=== PATIENT | female | born 1980 | race Caucasian/White ===

== ENCOUNTER 2017-08-15 10:26 | Emergency (ER) | payer BC ==
[2017-08-15] MEDS ORDERED: Rho(D) Immune Globulin 300 MCG/2 ML Syringe IM ONE (10:58)
--- NOTE | 2017-08-15 11:02 | EDM.PDOC ---
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 Patient said she had some vaginal bleeding at the beginning of and saw Dr. Bob and had blood work done on July 25 and July 27 which yielded serum quantitative hCG is of 398 and 1029. She has not had any vaginal bleeding since that time and she has not had sexual intercourse for more than 3 days. Patient says that she has had nausea throughout the mostly at night but not much vomiting she's not had diarrhea urinary complaints fever chills cough runny nose or sore throat. She's been hydrating. She says that she had some pinkish spotting yesterday only when she wiped and some cramping and has used 1 or 2 light pad since that time with some darkish blood currently. She has not passed any tissue. The patient has not seen Jhoana yet but has a scheduled appointment upcoming. She has not had an in office pelvic ultrasound or a formal ultrasound during her initial vaginal bleeding the beginning of July but did have a speculum exam from Dr. Bob at that time. Patient has no surgical history or gynecological history or ectopic risks Review of systems: As per history of present illness and below otherwise all systems reviewed and negative. Past medical history: As per history of present illness and as reviewed below otherwise noncontributory. Surgical history: As per history of present illness and as reviewed below otherwise noncontributory. Social history: No reported history of drug or alcohol abuse. Family history: As per history of present illness and as reviewed below otherwise noncontributory. Physical exam: Gen.: Well-developed well-nourished overweight female who is nontoxic and speaking clearly and easily in the ED. Vital signs of the note by me HEENT: Atraumatic, normocephalic, negative for conjunctival pallor or scleral icterus, mucous membranes moist, throat clear, neck supple, nontender, trachea midline. Lungs: Clear to auscultation, breath sounds equal bilaterally, chest nontender. Heart: S1S2, regular rate and rhythm no overt murmurs Abdomen: Soft, nondistended, nontender. Negative for masses or hepatosplenomegaly. Negative for costovertebral tenderness. Pelvis: Stable nontender. Genitourinary: External genitalia are within normal limits and there is no blood in the vaginal vault on digital exam. Cervix is closed, uterus is small and bulky 6-8 weeks size and nontender. Rectal: Deferred. Extremities: Atraumatic, negative for cords or calf pain. Neurovascular unremarkable. Neuro: Awake, alert, oriented. Cranial nerves II through XII unremarkable. Cerebellum unremarkable. Motor and sensory unremarkable throughout. Exam nonfocal. Diagnostics: CBC UA urine culture if indicated serum quantitative hCG pelvic ultrasound Therapeutics: Patient tells me that she is B- and will need RhoGAM so I will order this for her 1158--case was discussed with Jhoana Genao and she agrees with care plan of Keflex for the bacteriuria and RhoGam. The patient will follow up with her in the clinic and I've advised her on reasons return as well as strict pelvic rest. The quantitative hCG is pending at the time of this disposition but in light of the ultrasound documenting a live IUP I will not hold her for that. Impression: Threatened Definitive disposition and diagnosis as appropriate pending reevaluation and review of above. 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 - Infectious Disease History Infectious Disease History: Reports: Chicken Pox Social & Family History - Family History Family Medical History: Noncontributory Cardiac: Reports: Angina Respiratory: Reports: Sleep Apnea OBGYN: Reports: Musculoskeletal: Reports: Arthritis Neurological: Reports: None Psychiatric: Reports: Anxiety, Depression Oncologic: Reports: Skin - Tobacco Use Smoking Status *Q: Former Smoker Second Hand Smoke Exposure: Yes - Caffeine Use Caffeine Use: Reports: Tea - Recreational Drug Use Recreational Drug Use: No ED ROS GENERAL - Review of Systems Review Of Systems: ROS reveals no pertinent complaints other than HPI. ED EXAM, GENERAL - Physical Exam Exam: See Below (See dictation) Course - Vital Signs Last Recorded V/S: Last Vital Signs Temp 36.6 C 08/15/17 10:32 Pulse 94 08/15/17 10:32 Resp 15 08/15/17 10:32 BP 129/82 08/15/17 10:32 Pulse Ox 97 08/15/17 10:32 - Orders/Labs/Meds Orders: Active Orders 24 hr Category Date Time Status CULTURE URINE [RM] Stat Lab 08/15/17 11:05 Received HCG QUANTITATIVE,SERUM [CHEM] Stat Lab 08/15/17 11:02 Received RHOGAM, [RHIG WORKUP, ] [BBK] Stat Lab 08/15/17 11:02 Received TYPE AND SCREEN [BBK] Stat Lab 08/15/17 11:02 Received Labs: Laboratory Tests 08/15/17 08/15/17 Range/Units 11:02 11:05 WBC 8.24 (4.0-11.0) K/uL RBC 4.78 (4.30-5.90) M/uL Hgb 14.0 (12.0-16.0) g/dL Hct 40.8 (36.0-46.0) % MCV 85.4 (80.0-98.0) fL MCH 29.3 (27.0-32.0) pg MCHC 34.3 (31.0-37.0) g/dL RDW Std Deviation 40.2 (28.0-62.0) fl RDW Coeff of Ingris 13 (11.0-15.0) % Plt Count 185 (150-400) K/uL MPV 10.10 (7.40-12.00) fL Neut % (Auto) 77.0 (48.0-80.0) % Lymph % (Auto) 16.9 (16.0-40.0) % [place] % (Auto) 5.1 (0.0-15.0) % Eos % (Auto) 0.8 (0.0-7.0) % Baso % (Auto) 0.2 (0.0-1.5) % Neut # (Auto) 6.3 H (1.4-5.7) K/uL Lymph # (Auto) 1.4 (0.6-2.4) K/uL Irion # (Auto) 0.4 (0.0-0.8) K/uL Eos # (Auto) 0.1 (0.0-0.7) K/uL Baso # (Auto) 0.0 (0.0-0.1) K/uL Nucleated RBC % 0.0 /100WBC Nucleated RBCs # 0 K/uL Urine Color YELLOW Urine Appearance CLEAR Urine pH 6.0 (5.0-8.0) Ur Specific [place] >= 1.030 (1.001-1.035) Urine Protein NEGATIVE (NEGATIVE) mg/dL Urine Glucose (UA) NEGATIVE (NEGATIVE) mg/dL Urine Ketones NEGATIVE (NEGATIVE) mg/dL Urine Occult Blood LARGE H (NEGATIVE) Urine Nitrite NEGATIVE (NEGATIVE) Urine Bilirubin NEGATIVE (NEGATIVE) Urine Urobilinogen 0.2 (<2.0) EU/dL Ur Leukocyte Esterase MODERATE (NEGATIVE) Urine RBC 5-7 (0-2/HPF) Urine WBC 1-3 (0-5/HPF) Ur Epithelial Cells MODERATE (NONE-FEW) Urine Bacteria 2+ H (NEGATIVE) Meds: Medications Discontinued Medications Generic Name Dose Route Start Last Admin Trade Name Denzelq PRN Reason Stop Dose Admin Rho Immune Globulin 300 mcg 08/15/17 10:58 Rhophylac IM 08/15/17 10:59 ONETIME ONE Departure - Departure Time of Disposition: 12:00 Disposition: Home, Self-Care 01 Condition: Good Clinical Impression: Threatened - Discharge Information Referrals: PCP,None [Primary Care Provider] - Forms: ED Department Discharge Additional Instructions: The following information is given to patients seen in the emergency department who are being discharged to home. This information is to outline your options for follow-up care. We provide all patients seen in our emergency department with a follow-up referral. The need for follow-up, as well as the timing and circumstances, are variable depending upon the specifics of your emergency department visit. If you don't have a primary care physician on staff, we will provide you with a referral. We always advise you to contact your personal physician following an emergency department visit to inform them of the circumstance of the visit and for follow-up with them and/or the need for any referrals to a consulting specialist. The emergency department will also refer you to a specialist when appropriate. This referral assures that you have the opportunity for followup care with a specialist. All of these measure are taken in an effort to provide you with optimal care, which includes your followup. Under all circumstances we always encourage you to contact your private physician who remains a resource for coordinating your care. When calling for followup care, please make the office aware that this follow-up is from your recent emergency room visit. If for any reason you are refused follow-up, please contact the [facility] emergency department at and ask to speak to the emergency department charge nurse. [facility] [address] [address] Push hydration and strict pelvic rest until followed up by Jhoana Genao in the clinic including no tampons no douching no sexual intercourse or any other manipulation of the vagina. Please monitor your symptoms and return to ER as needed and as discussed. Please take Keflex as directed for your early UTI - My Orders Last 24 Hours: My Active Orders 08/15/17 11:02 HCG QUANTITATIVE,SERUM [CHEM] Stat RHOGAM, [RHIG WORKUP, ] [BBK] Stat TYPE AND SCREEN [BBK] Stat 08/15/17 11:05 CULTURE URINE [RM] Stat - Assessment/Plan Last 24 Hours: My Active Orders 08/15/17 11:02 HCG QUANTITATIVE,SERUM [CHEM] Stat RHOGAM, [RHIG WORKUP, ] [BBK] Stat TYPE AND SCREEN [BBK] Stat 08/15/17 11:05 CULTURE URINE [RM] Stat
--- NOTE | 2017-08-15 11:43 | US ---
EXAMINATION: Transvaginal obstetric ultrasound HISTORY: Bleeding COMPARISON: None TECHNIQUE: Grayscale, M-mode, and color Doppler imaging obtained. FINDINGS: There is a single live intrauterine identified with a heart rate of 144 bpm . A small yolk sac is also noted. [place]-rump length measures 1.2 cm giving an estimated gestational a ge at 7 weeks and 4 days. Estimated date of delivery is 03/30/2018. The right ovary appears grossly un remarkable. The left ovary is not well identified. No free pelvic fluid. IMPRESSION: Single live intrauterine .
[2017-08-15 12:48] VITALS: BP 124/74
== END 2017-08-15 12:55 | disposition home or self-care (01) ==
LOC: MW.ED 10:26
DX: O20.0 Threatened abortion (principal); Z88.0 Allergy status to penicillin; Z88.1 Allergy status to other antibiotic agents; Z87.891 Personal history of nicotine dependence; Z3A.01 Less than 8 weeks gestation of pregnancy
CPT/HCPCS: 36415; 76801; 81001; 84702; 85025; 86850; 86900; 86901; 87086; 96372; 99284; J2790; J2791; 99283

== ENCOUNTER 2017-11-02 11:12 | Emergency (ER) | payer SELFPAY ==
--- NOTE | 2017-11-02 11:39 | EDM.PDOC ---
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 Review of Systems: As per history of present illness and below otherwise all systems reviewed and negative. Past medical history: As per history of present illness and as reviewed below otherwise noncontributory. Surgical history: As per history of present illness and as reviewed below otherwise noncontributory. Social history: No reported history of drug or alcohol abuse. Family history: As per history of present illness and as reviewed below otherwise noncontributory. Physical exam: Alert and oriented female answering questions appropriately in full sentences no shortness breath noted on examination. HEENT: Atraumatic, normocehpalic, pupils reactive, negative for conjunctival pallor or scleral icterus, mucous membranes moist, throat clear, neck supple, nontender, trachea midline. Lungs: Clear to auscultation, breath sounds equal bilaterally, chest non tender. Heart: S1S2, regular, negative for clicks, rubs, or JVD. Abdomen: Soft, nondistended, nontender. Negative for masses or hepatossplenmegaly. Negative for costovertebral tenderness. Pelvis: Stable nontender. Genitourinary: Deferred. Rectal: Deferred Extremities: Atraumatic, negative for cords or calf pain. Neurovascular unremarkable. Neuro: Awake, alert, oriented. Cranial nerves II through XII unremarkable. Cerebellum unremarkable. Motor and sensory unremarkable throughout. Exam nonfocal. Ultrasound report identifies no acute bleed placenta is anterior and intact. UA is clear on plus bacteria but no nitrates. Discussed these results with patient and her who verbalized understanding. Diagnostics: [UA Pelvic ultrasound] Therapeutics: [] Impression: [ worried well] Plan: []Discharge to home Follow-up with your DISK AND TAPE MACHINE TENDER as scheduled Definitive disposition and diagnosis as appropriate pending reevaluation and review of above. Onset: Today, Sudden Duration: Minutes: - Related Data Allergies Allergy/AdvReac Type Severity Reaction Status Date / Time Penicillins Allergy Unknown Other Verified 11/02/17 11:19 amoxicillin Allergy Other Verified 11/02/17 11:19 Home Meds: Home Meds . 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 Endocrine/Metabolic History: Reports: None Hematologic History: Reports: None Immunologic History: Reports: None Oncologic (Cancer) History: Reports: None Dermatologic History: Reports: None - Infectious Disease History Infectious Disease History: Reports: Chicken Pox, Other (See Below) Other Infectious Disease History: childhood - Past Surgical History Head Surgeries/Procedures: Reports: None HEENT Surgical History: Reports: None Cardiovascular Surgical History: Reports: None Respiratory Surgical History: Reports: None GI Surgical History: Reports: None Female Surgical History: Reports: None Endocrine Surgical History: Reports: None Neurological Surgical History: Reports: None Musculoskeletal Surgical History: Reports: None Oncologic Surgical History: Reports: None Dermatological Surgical History: Reports: None Social & Family History - Family History Family Medical History: Noncontributory Cardiac: Reports: Angina Respiratory: Reports: Sleep Apnea OBGYN: Reports: Musculoskeletal: Reports: Arthritis Neurological: Reports: None Psychiatric: Reports: Anxiety, Depression Oncologic: Reports: Skin - Tobacco Use Smoking Status *Q: Never Smoker Second Hand Smoke Exposure: Yes - Caffeine Use Caffeine Use: Reports: Tea - Recreational Drug Use Recreational Drug Use: No ED ROS GENERAL - Review of Systems Review Of Systems: ROS reveals no pertinent complaints other than HPI. ED EXAM - Physical Exam Exam: See Below (see dictation) Course - Vital Signs Last Recorded V/S: Last Vital Signs Temp 36.4 C 11/02/17 11:19 Pulse 87 11/02/17 11:19 Resp 18 11/02/17 11:19 BP 131/78 11/02/17 11:19 Pulse Ox 95 11/02/17 11:19 - Orders/Labs/Meds Labs: Laboratory Tests 11/02/17 Range/Units 11:45 Urine Color YELLOW Urine Appearance SLT CLOUDY Urine pH 5.5 (5.0-8.0) Ur Specific [place] >= 1.030 (1.001-1.035) Urine Protein NEGATIVE (NEGATIVE) mg/dL Urine Glucose (UA) NEGATIVE (NEGATIVE) mg/dL Urine Ketones TRACE H (NEGATIVE) mg/dL Urine Occult Blood NEGATIVE (NEGATIVE) Urine Nitrite NEGATIVE (NEGATIVE) Urine Bilirubin NEGATIVE (NEGATIVE) Urine Urobilinogen 0.2 (<2.0) EU/dL Ur Leukocyte Esterase MODERATE (NEGATIVE) Urine RBC 0-2 (0-2/HPF) Urine WBC 8-11 (0-5/HPF) Ur Epithelial Cells MODERATE (NONE-FEW) Urine Bacteria 1+ H (NEGATIVE) Departure - Departure Time of Disposition: 12:32 Disposition: Home, Self-Care 01 Condition: Good Clinical Impression: Worried well - Discharge Information Referrals: PCP,None [Primary Care Provider] - Forms: ED Department Discharge Additional Instructions: The following information is given to patients seen in the emergency department who are being discharged to home. This information is to outline your options for follow-up care. We provide all patients seen in our emergency department with a follow-up referral. The need for follow-up, as well as the timing and circumstances, are variable depending upon the specifics of your emergency department visit. If you don't have a primary care physician on staff, we will provide you with a referral. We always advise you to contact your personal physician following an emergency department visit to inform them of the circumstance of the visit and for follow-up with them and/or the need for any referrals to a consulting specialist. The emergency department will also refer you to a specialist when appropriate. This referral assures that you have the opportunity for followup care with a specialist. All of these measure are taken in an effort to provide you with optimal care, which includes your followup. Under all circumstances we always encourage you to contact your private physician who remains a resource for coordinating your care. When calling for followup care, please make the office aware that this follow-up is from your recent emergency room visit. If for any reason you are refused follow-up, please contact the [facility] emergency department at and asked to speak to the emergency department charge nurse. Follow-up with your DISK AND TAPE MACHINE TENDER as scheduled
--- NOTE | 2017-11-02 12:17 | US ---
EXAMINATION: Transabdominal obstetric ultrasound HISTORY: Fall COMPARISON: 08/15/2017 TECHNIQUE: Grayscale, color Doppler, and spectral Doppler imaging obtained. FINDINGS: There is a single live intrauterine noted in a cephalic position. The placenta is anterior and appears intact. The heart rate is 142 bpm. Biparietal diameter measures 3.9 cm, h ead circumference measures 15.1 cm, abdominal circumference measures 13.3 cm, and femoral length jonh ures 3 cm. Overall the gestational age is 18 weeks and 4 days with an estimated date of delivery at . Estimated weight is 260 g. percentile is 71%. IMPRESSION: 1. Single live intrauterine without acute findings.
[2017-11-02 12:47] VITALS: BP 121/73
== END 2017-11-02 12:45 | disposition home or self-care (01) ==
LOC: MW.ED 11:12
DX: Z34.92 Encounter for supervision of normal pregnancy, unspecified, second trimester (principal); Z71.1 Person with feared health complaint in whom no diagnosis is made; Z3A.19 19 weeks gestation of pregnancy; Z88.0 Allergy status to penicillin; Z88.1 Allergy status to other antibiotic agents; Z77.22 Contact with and (suspected) exposure to environmental tobacco smoke (acute) (chronic)
CPT/HCPCS: 76815; 76815-26; 81001; 99283; 99284-25